=== PATIENT | female | born 1965 | race Caucasian/White ===

== ENCOUNTER → 2017-09-21 | Outpatient (CLI) | payer OTHER ==
[~2017-09-21] MED LIST: IBUPROFEN600 MG; PHENERGAN25 M3 PO; ZOFRAN ODT4 MG SL
[2017-09-21 10:35] LABS: ALBUMIN 3.6 gm/dl (3.1-4.5); BILIRUBIN, DIRECT 0.1 mg/dL (0.0-0.2); TOTAL PROTEIN 7.4 gm/dL (6.4-8.2)
== END | disposition home or self-care (01) ==
LOC: LAB 09:52
PROVIDERS: Internal Medicine
DX: R73.02 Impaired glucose tolerance (oral) (principal); E78.4 Other hyperlipidemia; Z79.1 Long term (current) use of non-steroidal anti-inflammatories (NSAID)

== ENCOUNTER 2019-04-24 05:22 | Emergency (ER) | payer OTHER ==
[~2019-04-24] VITALS: Ht 175.2 cm; Wt 99.8 kg
[2019-04-24 06:12] LABS: BASO % 0.5 % (0.0-1.0); EOS # 0.1 10*3/uL (0.0-0.4); EOS % 1.2 % (1.0-4.0); HEMATOCRIT 40.6 % (37.0-47.0); HEMOGLOBIN 13.2 g/dl (12.0-16.0); LYMPH # 1.3 10*3/uL (1.3-4.4); MEAN CELL VOLUME 88.3 fl (81.0-99.0); MEAN CORPUSCULAR HGB 28.7 pg (27.0-31.0); MEAN CORPUSCULAR HGB CONC 32.5 g/dl (33.0-37.0); MEAN PLATELET VOLUME 12.7 fl (9.6-12.3); MONO # 0.3 10*3/uL (0.1-1.0); MONO % 5.3 % (3.0-9.0); NEUT # 4.3 10*3/uL (2.3-7.9); NEUT % 71.7 % (47.0-73.0); PLATELET COUNT AUTOMATED 179 10*3/uL (130-400); RED CELL DISTRI WIDTH 14.1 % (0-14.5)
[2019-04-24 06:26] LABS: ALBUMIN 3.4 gm/dl (3.1-4.5); ALKALINE PHOSPHATASE 74 U/L (45-117); BUN 21 mg/dl (7-24); CHLORIDE 109 mmol/L (98-107); CREATININE 0.74 mg/dL (0.55-1.02); POTASSIUM 4.1 mmol/L (3.5-5.1); SGOT/AST 11 IU/L (3-35); SGPT/ALT 18 U/L (12-78); SODIUM 140 mmol/L (136-145); TOTAL PROTEIN 7.1 gm/dL (6.4-8.2)
[2019-04-24 06:52] LABS: BILIRUBIN NEGATIVE (NEGATIVE); BLOOD NEGATIVE (NEGATIVE); CLARITY CLOUDY (CLEAR); COLOR YELLOW (YELLOW); GLUCOSE NEGATIVE (NEGATIVE); KETONE NEGATIVE (NEGATIVE); LEUKO ESTERASE NEGATIVE (NEGATIVE); NITRITE NEGATIVE (NEGATIVE); SPECIFIC GRAVITY 1.025 (1.005-1.030); UROBILINOGEN 0.2 E.U./dl (0.2-1.0)
[2019-04-24 07:11] LABS: BACTERIA 3+
== END 2019-04-24 07:43 | disposition home or self-care (01) ==
LOC: ED 05:22
PROVIDERS: Emergency Medicine
DX: R11.2 Nausea with vomiting, unspecified (principal); R73.9 Hyperglycemia, unspecified; R51 Headache

== ENCOUNTER 2020-06-13 07:24 | Emergency (ER) | payer OTHER ==
[~2020-06-13] VITALS: Ht 175.2 cm
[2020-06-13] MEDS ORDERED: GOOD NEIGHBOR M25 M1 PO (09:30)
== END 2020-06-13 10:45 | disposition home or self-care (01) ==
LOC: ED 07:24
DX: H81.11 Benign paroxysmal vertigo, right ear (principal)

== ENCOUNTER → 2021-02-05 | Outpatient (CLI) | payer OTHER ==
[~2021-02-05] MED LIST changes: +GOOD NEIGHBOR M25 M1 PO
[2021-02-07 12:07] LABS: HEP B CORE AB TOTAL Positive (Negative); HEPATITIS B SURFACE AB Non Reactive (.); HEPATITIS B SURFACE AG Negative (Negative)
== END | disposition home or self-care (01) ==
LOC: LAB 18:44
PROVIDERS: ATTEND Preventive Medicine Occupational Medicine
DX: Z77.21 Contact with and (suspected) exposure to potentially hazardous body fluids (principal)

== ENCOUNTER 2023-08-28 06:28 | Emergency (ER) | payer OTHER ==
[~2023-08-28] VITALS: Ht 165.1 cm; Wt 103.0 kg
[2023-08-28] MEDS ORDERED: ROSUVASTATIN CA40 MG PO (06:49)
[2023-08-28] MEDS ORDERED: VITAMIN D31250 MC2 PO (06:50)
[2023-08-28 07:01] LABS: BILIRUBIN Negative (Negative); BLOOD Negative (Negative); CLARITY Cloudy (Clear); COLOR Yellow (Yellow); GLUCOSE Negative (Negative); KETONE Negative (Negative); LEUKO ESTERASE Negative (Negative); NITRITE Negative (Negative); UROBILINOGEN 0.2 E.U./dl (0.0-1.0)
[2023-08-28 07:59] LABS: BACTERIA 4+; EPITHELIAL CELLS 21-30; MUCOUS 1+
[2023-08-28] MEDS ORDERED: HYDROCODONE-AC1 EAC1 PO (11:11)
[2023-08-28] MEDS ORDERED: PREDNISONE50 MG PO (11:11)
[2023-08-28] MEDS ORDERED: TIZANIDINE2 MG PO (11:11)
== END 2023-08-28 11:24 | disposition home or self-care (01) ==
LOC: ED 06:28
PROVIDERS: Internal Medicine
DX: S39.012A Strain of muscle, fascia and tendon of lower back, initial encounter (principal); Z90.89 Acquired absence of other organs; Z79.899 Other long term (current) drug therapy; X50.1XXA Overexertion from prolonged static or awkward postures, initial encounter; Y93.89 Activity, other specified; Y92.009 Unspecified place in unspecified non-institutional (private) residence as the place of occurrence of the external cause; Y99.8 Other external cause status

== ENCOUNTER 2024-01-13 10:25 | Emergency (ER) | payer OTHER ==
[~2024-01-13] VITALS: Ht 175.2 cm; Wt 102.1 kg
[~2024-01-13 10:25] MED LIST changes: +HYDROCODONE-AC1 EAC1 PO; +PREDNISONE50 MG PO; +ROSUVASTATIN CA40 MG PO; +TIZANIDINE2 MG PO; +VITAMIN D31250 MC2 PO
[2024-01-13] MEDS ORDERED: FLUORESCEIN SODIUM 1 MG STRIP OPH ONE (10:50)
[2024-01-13] MEDS ORDERED: CIPROFLOXACIN H10 ML OPH (11:03)
== END 2024-01-13 11:19 | disposition home or self-care (01) ==
LOC: ED 10:25
DX: T15.90XA Foreign body on external eye, part unspecified, unspecified eye, initial encounter (principal); Z90.89 Acquired absence of other organs

== ENCOUNTER 2024-09-16 04:19 | Emergency (ER) | payer OTHER ==
[~2024-09-16] VITALS: Ht 175.2 cm; Wt 104.3 kg
[~2024-09-16 04:19] MED LIST changes: +CIPROFLOXACIN H10 ML OPH
[2024-09-16] MEDS ORDERED: SODIUM CHLORIDE 0.9% 1,000 ML IV ONE (04:35)
[2024-09-16] MEDS ORDERED: Ketorolac Tromethamine 15 MG/ML VIAL IV ONE (04:35)
[2024-09-16] MEDS ORDERED: Ondansetron Hydrochloride 4 MG/2 ML VIAL IV ONE (04:35)
[2024-09-16] MEDS ORDERED: MORPHINE Sulfate 2 MG/ML SYR IV ONE (04:35)
[2024-09-16] MEDS ORDERED: Promethazine Hydrochloride 25 MG/ML VIAL IV ONE (04:40)
[2024-09-16 04:53] LABS: BASO % 0.3 % (0.0-1.0); EOS # 0.1 10*3/uL (0.0-0.4); EOS % 0.8 % (1.0-4.0); HEMATOCRIT 41.4 % (37.0-47.0); MEAN CELL VOLUME 83.8 fl (81.0-99.0); MEAN CORPUSCULAR HGB 27.5 pg (27.0-31.0); MEAN CORPUSCULAR HGB CONC 32.9 g/dl (33.0-37.0); MEAN PLATELET VOLUME 11.9 fl (9.6-12.3); MONO # 0.5 10*3/uL (0.1-1.0); MONO % 7.1 % (3.0-9.0); NEUT # 5.2 10*3/uL (2.3-7.9); NEUT % 72.8 % (47.0-73.0); PLATELET COUNT AUTOMATED 189 10*3/uL (130-400); RED BLOOD COUNT 4.94 10*6/uL (4.10-5.10); RED CELL DISTRI WIDTH 13.9 % (0-14.5); WHITE BLOOD COUNT 7.1 10*3/uL (4.8-10.8)
[2024-09-16 05:15] LABS: BUN 23 mg/dl (9-23); CHLORIDE 104 mmol/L (98-107); POTASSIUM 4.2 mmol/L (3.4-5.1)
[2024-09-16 06:28] LABS: BILIRUBIN Negative (Negative); BLOOD Negative (Negative); CLARITY Clear (Clear); COLOR Yellow (Yellow); GLUCOSE Negative (Negative); KETONE 4+ (Negative); LEUKO ESTERASE Negative (Negative); NITRITE Negative (Negative); PH 5.5 (4.5-8.0); SPECIFIC GRAVITY 1.025 (1.001-1.030); UROBILINOGEN 0.2 E.U./dl (0.0-1.0)
[2024-09-16 06:48] LABS: MUCOUS TRACE; RBC 0-2 rbc/hpf (0-2); WBC 0-2 wbc/hpf (0-5)
[2024-09-16 06:49] LABS: BACTERIA TRACE
[2024-09-16] MEDS ORDERED: HYDROCODONE-AC1 EAC1 PO (08:51)
[2024-09-16] MEDS ORDERED: Phenergan25 MG PO (08:51)
== END 2024-09-16 09:16 | disposition home or self-care (01) ==
LOC: ED 04:19
PROVIDERS: Internal Medicine
DX: S39.012A Strain of muscle, fascia and tendon of lower back, initial encounter (principal); R11.2 Nausea with vomiting, unspecified; Z79.899 Other long term (current) drug therapy; X58.XXXA Exposure to other specified factors, initial encounter; Y93.89 Activity, other specified; Y92.89 Other specified places as the place of occurrence of the external cause; Y99.8 Other external cause status

== ENCOUNTER 2025-05-30 04:42 | Emergency (ER) | payer OTHER ==
[~2025-05-30] VITALS: Ht 175.2 cm; Wt 99.8 kg
[~2025-05-30 04:42] MED LIST changes: +Phenergan25 MG PO
[2025-05-30] MEDS ORDERED: WEGOVY0.25 MG/0. SQ (05:00)
[2025-05-30] MEDS ORDERED: IBU600 M1 PO (05:01)
[2025-05-30] MEDS ORDERED: ROSUVASTATIN CA20 MG PO (05:01)
[2025-05-30] MEDS ORDERED: SODIUM CHLORIDE 0.9% 1,000 ML IV ONE (05:30)
[2025-05-30] MEDS ORDERED: Ondansetron Hydrochloride 4 MG/2 ML VIAL IV ONE (05:30)
[2025-05-30 06:08] LABS: BASO # 0.0 10*3/uL (0.0-0.1); BASO % 0.6 % (0.0-1.0); BUN 24 mg/dl (9-23); EOS # 0.1 10*3/uL (0.0-0.4); EOS % 1.6 % (1.0-4.0); MEAN CELL VOLUME 86.7 fl (81.0-99.0); MEAN CORPUSCULAR HGB 28.0 pg (27.0-31.0); MEAN PLATELET VOLUME 12.3 fl (9.6-12.3); MONO # 0.3 10*3/uL (0.1-1.0); MONO % 4.5 % (3.0-9.0); NEUT # 4.6 10*3/uL (2.3-7.9); NEUT % 73.5 % (47.0-73.0); NUCLEATED RED BLOOD CELL 0.0 % (0.0-0.0); NUCLEATED RED BLOOD CELL 0.0 10*3/uL (0.0-0.0); PLATELET COUNT AUTOMATED 171 10*3/uL (130-400); RED CELL DISTRI WIDTH 14.2 % (0-14.5)
[2025-05-30] MEDS ORDERED: Ondansetron4 MG PO (07:52)
== END 2025-05-30 08:01 | disposition home or self-care (01) ==
LOC: ED 04:42
PROVIDERS: Emergency Medicine
DX: R42 Dizziness and giddiness (principal); R11.2 Nausea with vomiting, unspecified; Z79.899 Other long term (current) drug therapy